=== PATIENT | female | born 2000 | race Two or more races ===

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

== ENCOUNTER 2020-01-02 04:44 | Emergency (ER) | payer OTHER, MEDICAID ==
[~2020-01-02] VITALS: Ht 162.6 cm; Wt 78.5 kg
[2020-01-02 08:02] VITALS: BP 105/51
== END 2020-01-02 08:24 | disposition home or self-care (01) ==
LOC: ER 04:44
DX: S00.33XA Contusion of nose, initial encounter (principal); Y04.0XXA Assault by unarmed brawl or fight, initial encounter; Y93.89 Activity, other specified; Y92.89 Other specified places as the place of occurrence of the external cause; Y99.8 Other external cause status
CPT/HCPCS: 70450; 70486; 71045; 72125

== ENCOUNTER 2022-06-08 10:44 | Emergency (ER) | payer MEDICAID ==
[~2022-06-08] VITALS: Ht 162.6 cm; Wt 91.8 kg
[2022-06-08 11:33] VITALS: BP 116/50
[2022-06-08 11:35] LABS: Basophils # (auto) 0.1 10 ^3/uL (0-0.2); Basophils % (auto) 0.7 % (0.0-2.0); Eosinophils # (auto) 0.1 10 ^3/uL (0-0.8); Eosinophils % (auto) 0.5 % (0.0-7.0); Hematocrit 40.2 % (36.0-46.0); Hemoglobin 13.6 g/dL (12.2-16.2); Lymphocytes # (auto) 3.1 10 ^3/uL (0.4-5.4); Lymphocytes % (auto) 26.6 % (10.0-50.0); Mean Corpuscular Hemoglobin 30.9 pg (28.0-32.0); Mean Corpuscular Hgb Conc. 33.8 g/dL (32.0-36.0); Mean Corpuscular Volume 91.4 fL (80.0-100.0); Monocytes # (auto) 0.6 10 ^3/uL (0-1.3); Monocytes % (auto) 5.2 % (0.0-12.0); Neutrophils # (auto) 7.9 10 ^3/uL (1.6-8.6); Nucleated Red Blood Cells % 0.1 %; Red Blood Cells 4.39 10^6/uL (4.0-5.20); Red Cell Distribution Width 13.2 % (11.8-14.3); White Blood Cell 11.8 10^3/uL (4.4-10.8)
[2022-06-08 12:00] LABS: Urine Bacteria NONE SEEN /hpf (None Seen); Urine Blood Negative /uL (Negative); Urine Budding Yeast MANY /hpf (None Seen); Urine Specific Gravity 1.024 (1.001-1.035); Urine WBC 13 /hpf (0 - 5); Urine WBC Clumps PRESENT /hpf (None Seen)
[2022-06-08] MEDS ORDERED: IBUP800T27 PO (13:46)
== END 2022-06-08 13:57 | disposition home or self-care (01) ==
LOC: ER 10:44
DX: N83.201 Unspecified ovarian cyst, right side (principal); Z32.02 Encounter for pregnancy test, result negative
CPT/HCPCS: 36415; 76830; 76856; 81001; 81025; 84702; 85025

== ENCOUNTER 2024-06-03 17:42 | Emergency (ER) | payer BC, MEDICAID ==
[~2024-06-03] VITALS: Ht 165.1 cm; Wt 93.1 kg
[~2024-06-03 17:42] MED LIST: IBUP-1456 PO
--- NOTE | 2024-06-03 18:33 | ED.PDOC ---
HPI Comments 23y F who presents to the ED for chief compliant of chest pain. Pt states she has been having chest pain since 11 AM. Pt states the pain is midsternal, non- radiating, achy in nature, with no associated exacerbating or relieving factors. pt has no associated symptoms but denies shortness of breath, diaphoresis, palpitation, headache, dizziness, fever, cough, or chills. Pt otherwise has noted history of anxiety. Pt denies any other symptoms at this time. Chief Complaint: Chest Pain Time Seen by MD: 18:31 Primary Care Provider: UNKNOWN Reviewed Notes: Nurses Notes Allergies: Coded Allergies: NO KNOWN ALLERGIES (Unverified , 12/07/12) Home Meds Active Scripts Ibuprofen (Ibuprofen) 800 Mg Tab, 1 TAB PO TID, #30 TAB Prov:SAJAN MORALES 06/08/22 Information Source: Patient Mode of Arrival: Ambulatory Brought in by: self Severity: Moderate Timing: Hours Duration: Since onset Prehospital treatment: None Location: Substernal Radiation: No Radiation Quality: Pressure Onset: At Rest Cardiac Risk Factors: None PE Risk Factors: None History of: None Modifying Factors: Nothing Associated Signs and Symptoms: None Past Medical History PAST MEDICAL HISTORY: Anxiety Surgical History: Denies all surgeries FLANGE TURNER History: No Pertinent FLANGE TURNER History Family History Family History: Reviewed,noncontributory to illness Social History Smoker: Non-Smoker Alcohol: Denies ETOH Use Drugs: Denies Drug Use Lives In: Home Constitutional: denies: chills, diaphoresis, fatigue, fever, malaise, sweats, weakness, others EENTM: denies: blurred vision, double vision, ear bleeding, ear discharge, ear drainage, ear pain, ear ringing, eye pain, eye redness, hearing loss, mouth pain, mouth swelling, nasal discharge, nose bleeding, nose congestion, nose pain, photophobia, tearing, throat pain, throat swelling, voice changes, others Respiratory: denies: cough, hemoptysis, orthopnea, SOB at rest, shortness of breath, SOB with excertion, stridor, wheezing, others Cardiovascular: reports: chest pain; denies: dizzy spells, diaphoresis, Dyspnea on exertion, edema, irregular heart beat, left arm pain, lightheadedness, palpitations, PND, syncope, others Gastrointestinal: denies: abdomen distended, abdominal pain, blood streaked bowels, constipated, diarrhea, dysphagia, difficulty swallowing, hematemesis, melena, nausea, poor appetite, poor fluid intake, rectal bleeding, rectal pain, vomiting, others Genitourinary: denies: abnormal vagina bleeding, burning, dyspareunia, dysuria, flank pain, frequency, hematuria, incontinence, pain, , vagina discharge, urgency, others Neurological: denies: dizziness, fainting, headache, left sided numbness, left sided weakness, numbness, paresthesia, pre-existing deficit, right sided numbness, right sided weakness, seizure, speech problems, tingling, tremors, weakness, others Musculoskeletal: denies: back pain, gout, joint pain, joint swelling, muscle pain, muscle stiffness, neck pain, others Integumetry: denies: bruises, change in color, change in hair/nails, dryness, laceration, lesions, lumps, rash, wounds, others Allergic/Immunocompromised: denies: Difficulty Healing, Frequent Infections, Hives, Itching, others Hematologic/Lymphatic: denies: anemia, blood clots, easy bleeding, easy bruising, swollen glands, others Endocrine: denies: excessive hunger, excessive sweating, excessive thirst, excessive urination, flushing, intolerance to cold, intolerance to heat, unexplained weight gain, unexplained weight loss, others Psychiatric: denies: anxiety, bipolar disorder, depression, hopeless, panic disorder, schizophrenia, sleepless, suicidal, others All Other Systems: Reviewed and Negative Physical Exam General Appearance: No Apparent Distress, Normal HEENT: Normal ENT Inspection, Pharynx Normal, TMs Normal Neck: Full Range of Motion, Non-Tender, Normal, Normal Inspection Respiratory: Chest Non-Tender, Lungs Clear, No Accessory Muscle Use, No Respiratory Distress, Normal Breath Sounds Cardiovascular: Other (chest pain reproducible to palpation) Breast Exam: Deferred Gastrointestinal: No Organomegaly, Non Tender, No Pulsatile Mass, Normal Bowel Sounds, Soft Genitalia: Deferred Pelvic: Deferred Rectal: Deferred Extremities: No calf tenderness, Normal capillary refill, Normal inspection, Normal range of motion, Non-tender, No pedal edema Musculoskeletal : Apperance: Normal Neurologic: Alert, channel marketing manager II-XII nml as Tested, No Motor Deficits, Normal Affect, Normal Mood, No Sensory Deficits Cerebellar Function: Normal Reflexes: Normal Skin: Dry, Normal Color, Warm Lymphatic: No Adenopathy Was a procedure done? Was a procedure done?: No CP Differential Dx Differential Diagnosis: Angina, Anxiety / Panic Attack, Electrolyte Disorder Differential Diagnosis: Chest Wall Pain, Costochondritis X-Ray, Labs, Meds, VS Vital Signs Date Time Temp Pulse Resp B/P (MAP) Pulse Ox O2 Delivery O2 Flow Rate FiO2 06/03/24 18:51 83 18 97 Room Air* 0 21 06/03/24 18:51 98.2 83 18 132/80 (97) 97 98.2 06/03/24 17:54 98.7 84 18 145/73 (97) 99 Lab Test 06/03/24 18:51 06/03/24 18:50 06/03/24 18:18 Range/Units Troponin I High Sensitivity < 3 L < 3 L </=34 ng/L Urine Color Light-yellow Yellow Urine Clarity Clear Clear Urine pH 6.0 5.0-9.0 Urine Specific Nora 1.025 1.001-1.035 Urine Protein Negative Negative Urine Ketones Negative Negative Urine Blood Trace H Negative /uL Urine Nitrite Negative Negative Urine Bilirubin Negative Negative Urine Urobilinogen Normal Negative mg/dL Urine Leukocyte Esterase Negative Negative /uL Urine RBC 8 0 - 4 /hpf Urine Microscopic WBC 2 0-5 /HPF Urine Squamous Epithelial Cells Few <5 /hpf Urine Bacteria None seen None Seen /hpf Urine Glucose Normal Normal mg/dL White Blood Count 14.7 H 4.4-10.8 10^3/uL Red Blood Count 4.88 4.0-5.20 10^6/uL Hemoglobin 15.2 12.2-16.2 g/dL Hematocrit 44.5 36.0-46.0 % Mean Corpuscular Volume 91.2 80.0-100.0 fL Mean Corpuscular Hemoglobin 31.2 28.0-32.0 pg Mean Corpuscular Hemoglobin Concent 34.2 32.0-36.0 g/dL Red Cell Distribution Width 12.8 11.8-14.3 % Platelet Count 327 140-450 10^3/uL Mean Platelet Volume 8.2 6.9-10.8 fL Neutrophils (%) (Auto) 58.8 37.0-80.0 % Lymphocytes (%) (Auto) 32.8 10.0-50.0 % Monocytes (%) (Auto) 6.8 0.0-12.0 % Eosinophils (%) (Auto) 1.2 0.0-7.0 % Basophils (%) (Auto) 0.4 0.0-2.0 % Neutrophils # (Auto) 8.6 1.6-8.6 10 ^3/uL Lymphocytes # (Auto) 4.8 0.4-5.4 10 ^3/uL Monocytes # (Auto) 1.0 0-1.3 10 ^3/uL Eosinophils # (Auto) 0.2 0-0.8 10 ^3/uL Basophils # (Auto) 0.1 0-0.2 10 ^3/uL Nucleated Red Blood Cells 0.1 % Sodium Level 137 136-145 mmol/L Potassium Level 4.0 3.5-5.1 mmol/L Chloride Level 102 98-107 mmol/L Carbon Dioxide Level 25 20-31 mmol/L Anion Gap 10 5-15 Blood Urea Nitrogen 24 H 9-23 mg/dL Creatinine 0.70 0.550-1.02 mg/dL Glomerular Filtration Rate Calc 125 >90 mL/min BUN/Creatinine Ratio 34.3 H 10.0-20.0 Serum Glucose 106 74-106 mg/dL Calcium Level 10.7 H 8.7-10.4 mg/dL Total Bilirubin 0.4 0.2-1.0 mg/dL Aspartate Amino Transferase (AST) 8 L 13-40 U/L Alanine Aminotransferase (ALT) 23 7-40 U/L Alkaline Phosphatase 87 46-116 U/L Total Protein 8.0 5.7-8.2 g/dL Albumin 5.2 H 3.2-4.8 g/dL [place] [id number] Ph: [phone] DIAGNOSTIC IMAGING Diagnostic Imaging Report : [id number] Signed PATIENT: EMILY CLARK ACCT: [id number] UNIT: [id number] : 2000 LOC: ER ROOM / BED: / AGE / SEX: 23 / F ADM STATUS: REG ER SERVICE [id number] ORDERING PHYSICIAN: AMY MCINTYRE PROCEDURE(s): CXRP - CHEST PORTABLE REASON: cp ORDER NUMBER(s): [id number], ACCESSION NUMBER(s): [id number] EXAM: XR Chest, 1 View CLINICAL INDICATION: cp TECHNIQUE: Frontal view of the chest. COMPARISON: CHEST XRAY 1 VIEW on DOS: 01/02/20 FINDINGS: LUNGS AND PLEURAL SPACES: Unremarkable. No consolidation. No pneumothorax. HEART: Unremarkable. No cardiomegaly. MEDIASTINUM: Unremarkable. Normal mediastinal contour. BONES/JOINTS: Unremarkable. No acute fracture. OTHER FINDINGS: . None. . . .. IMPRESSION: No acute cardiopulmonary process. ATED BY: TIFFANIE MOREIRA MD DICTATED DATE/TIME: 06/03/241835 SIGNED BY: TIFFANIE MOREIRA MD SIGNED DATE/TIME: 06/03/241835 CC: X-Ray, Labs, Meds, VS Comment Imaging: X-rays and CT scans were reviewed and interpreted by this provider, imaging shows no fractures and no pathological disease. Pending radiology review. Laboratory: Labs reviewed and interpreted by this provider. No significant abnormalities noted. Patient has prior medical visits reviewed. Med reconciliation performed Vital signs reviewed Time of 1ST Reevaluation: 19:00 Reevaluation 1ST: Unchanged Patient Education/Counseling: Diagnosis, Treatment, Need For Follow Up (Patient advised to follow-up in the emergency room in the next 24 to 48 hours if symptoms do not improve. Advised follow-up with PCP in the next 3 to 5 days. Patient verbalized understanding. ) Family Education/Counseling: No Family Present Departure 1 Departure Time of Disposition: 19:40 Impression: Primary Impression: Musculoskeletal chest pain Additional Impressions: Cough Qualified Codes: R05.1 - Acute cough Anxiety Disposition: 01 HOME / SELF CARE / HOMELESS Condition: Fair Discharged With: Self Critical Care Note Critical Care Time?: No Stability Stability form required: No Heart Score Heart Score: Heart Score Response (Comments) Value History Slightly Suspicious 0 EKG Normal 0 Age <45 0 Risk Factors No known risk factors 0 Troponin Normal limit 0 Total 0 I personally scribed for AMY MCINTYREP ([email or web address]) on 06/03/24 at 18:33. Electronically submitted by Shea Garrett ([email or web address]). I personally scribed for AMY MCINTYRE TUMBLER PLATER ([email or web address]) on 06/03/24 at 18:53. Electronically submitted by Shea Garrett ([email or web address]). AMY MCINTYRE Jun 03, 2024 18:33
[2024-06-03 18:37] LABS: Basophils # (auto) 0.1 10 ^3/uL (0-0.2); Basophils % (auto) 0.4 % (0.0-2.0); Eosinophils # (auto) 0.2 10 ^3/uL (0-0.8); Eosinophils % (auto) 1.2 % (0.0-7.0); Hematocrit 44.5 % (36.0-46.0); Hemoglobin 15.2 g/dL (12.2-16.2); Lymphocytes # (auto) 4.8 10 ^3/uL (0.4-5.4); Lymphocytes % (auto) 32.8 % (10.0-50.0); Mean Corpuscular Hemoglobin 31.2 pg (28.0-32.0); Mean Corpuscular Hgb Conc. 34.2 g/dL (32.0-36.0); Mean Corpuscular Volume 91.2 fL (80.0-100.0); Monocytes % (auto) 6.8 % (0.0-12.0); Neutrophils # (auto) 8.6 10 ^3/uL (1.6-8.6); Neutrophils % (auto) 58.8 % (37.0-80.0); Nucleated Red Blood Cells % 0.1 %; Platelet Count (auto) 327 10^3/uL (140-450); Red Blood Cells 4.88 10^6/uL (4.0-5.20); Red Cell Distribution Width 12.8 % (11.8-14.3); White Blood Cell 14.7 10^3/uL (4.4-10.8)
--- NOTE | 2024-06-03 18:39 | DVH ---
EXAM: XR Chest, 1 View CLINICAL INDICATION: cp TECHNIQUE: Frontal view of the chest. COMPARISON: CHEST XRAY 1 VIEW on DOS: 01/02/20 FINDINGS: LUNGS AND PLEURAL SPACES: Unremarkable. No consolidation. No pneumothorax. HEART: Unremarkable. No cardiomegaly. MEDIASTINUM: Unremarkable. Normal mediastinal contour. BONES/JOINTS: Unremarkable. No acute fracture. OTHER FINDINGS: . None. . . .. IMPRESSION: No acute cardiopulmonary process.
[2024-06-03 18:51] VITALS: PULSE 83; RESP 18; O2SAT 97
[2024-06-03 18:51] LABS: Alanine Aminotransferase 23 U/L (7-40); Alkaline Phosphatase 87 U/L (46-116); Anion Gap 10 (5-15); BUN/Creatinine Ratio 34.3 (10.0-20.0); Bilirubin, Total 0.4 mg/dL (0.2-1.0); Carbon Dioxide 25 mmol/L (20-31); Chloride 102 mmol/L (98-107); Sodium 137 mmol/L (136-145)
[2024-06-03 18:59] LABS: Albumin 5.2 g/dL (3.2-4.8); Aspartate Aminotransferase 8 U/L (13-40); Blood Urea Nitrogen 24 mg/dL (9-23); Calcium 10.7 mg/dL (8.7-10.4); Glucose 106 mg/dL (74-106)
[2024-06-03 19:21] LABS: Urine Bacteria None Seen /hpf (None Seen)
[2024-06-03 19:36] LABS: Urine Blood TRACE /uL (Negative); Urine Clarity Clear (Clear); Urine Color Light-Yellow (Yellow); Urine Protein, UAD Negative (Negative); Urine Specific Gravity 1.025 (1.001-1.035); Urine Squamous Epithelial Cell FEW /hpf (<5); Urine Urobilinogen Normal (Negative); Urine WBC 2 /HPF (0-5)
[2024-06-03 20:35] VITALS: BP 123/75; PULSE 88; RESP 16; TEMP 98.1; O2SAT 97
--- NOTE | 2024-06-04 09:55 | ECG ---
[facility] Test Date: 2024-06-03 Test Time: 17:48:27 Pat Name: EMILY CLARK Department: ER Room: Gender: F Medical Services Coordinator: IC : 2000 Requested By: AMY MCINTYRE Order Number: [id number] Reading MD: Eldon Maxwell Measurements Intervals [place] Rate: 86 P: 55 MT: 162 QRS: 93 QRSD: 107 T: 17 QT: 375 QTc: 449 Interpretive Statements Sinus rhythm Borderline right axis deviation Abnormal Q suggests inferior infarct Baseline wander in lead(s) I,III,aVL Electronically Signed On 06-04-2024 12:01:06 PST by Eldon Maxwell Please click the below link to view image of tracing.
== END 2024-06-03 20:36 | disposition home or self-care (01) ==
LOC: ER 17:42
DX: R07.9 Chest pain, unspecified (principal); R07.2 Precordial pain; R05.9 Cough, unspecified; F41.9 Anxiety disorder, unspecified
CPT/HCPCS: 36415; 71045; 80053; 81001; 84484; 85025; 93005